=== PATIENT | female | born 1985 | race Caucasian/White ===

== ENCOUNTER 2021-07-02 09:50 | Emergency (ER) | payer SELFPAY ==
[~2021-07-02] VITALS: Ht 167.6 cm; Wt 75.0 kg
[2021-07-02] MEDS ORDERED: KETOROLAC 30MG/ML VIAL IM ONE (10:30)
[2021-07-02] MEDS ORDERED: ONDANSETRON 4MG ODT PO ONE (11:15)
[2021-07-02] MEDS ORDERED: NAPR500T7 MT (13:14)
[2021-07-02 13:16] VITALS: BP 125/72
== END 2021-07-02 13:27 | disposition home or self-care (01) ==
LOC: ER 09:50
DX: S09.8XXA Other specified injuries of head, initial encounter (principal); M25.571 Pain in right ankle and joints of right foot; M54.5 Low back pain; M25.512 Pain in left shoulder; R11.10 Vomiting, unspecified; R03.0 Elevated blood-pressure reading, without diagnosis of hypertension; W01.0XXA Fall on same level from slipping, tripping and stumbling without subsequent striking against object, initial encounter; Y93.89 Activity, other specified; Y92.89 Other specified places as the place of occurrence of the external cause
CPT/HCPCS: 70450; 73030; 73610; 96372; 99284; J1885; Q0162